=== PATIENT | female | born 1930 | race Caucasian/White ===

== ENCOUNTER → 2016-04-26 | Outpatient (CLI) | payer MEDICARE, BC ==
[~2016-04-26] MED LIST: ALLEGRA180 MG PO; BIOTIN1 M1 PO; FENOFIBRATE54 MG PO; FLOVENT DI50 MCG/Act IH; FLOVENT HFA10.6 GM INH; GABAPENTIN600 MG PO; HEARTBURN RELI150 MG PO; LEVAQUIN 5500 MG/TA1 PO; LOW DOSE ASPIRI81 MG PO; LUTEIN6 M1 PO; MAG-TAB SR84 MG PO; METFORMIN HCL500 MG PO; PHENERGAN W/CO120 M1 PO; SLOW-MAG535 MG PO; VIACTIV CARAMEL PO; ZITHROMAX Z PA250 MG PO; ZYRTEC ALLERGY10 MG PO
== END ==
LOC: MAMMO 11:35
DX: Z12.31 Encounter for screening mammogram for malignant neoplasm of breast (principal)
CPT/HCPCS: G0202

== ENCOUNTER → 2017-05-30 | Outpatient (CLI) | payer MEDICARE, BC ==
[2016-03-08 14:22] VITALS: BP 160/95
== END ==
LOC: MAMMO 15:15 → RAD 15:15 → MAMMO 15:16
DX: Z12.31 Encounter for screening mammogram for malignant neoplasm of breast (principal)

== ENCOUNTER 2017-06-22 14:30 | Outpatient (RCR) | payer MEDICARE, BC ==
[2016-03-08 14:22] VITALS: BP 160/95
== END 2017-06-22 15:00 | disposition home or self-care (01) ==
LOC: PT 14:30
DX: R26.9 Unspecified abnormalities of gait and mobility (principal); Z91.81 History of falling
CPT/HCPCS: G8978-GP; G8979-GP

== ENCOUNTER 2017-08-18 21:26 | Emergency (ER) | payer MEDICARE, BC ==
[~2017-08-18] VITALS: Ht 154.9 cm; Wt 52.3 kg
[2017-08-18] MEDS ORDERED: FOSAMAX 70MG TA70 MG PO (22:29)
[2017-08-19] MEDS ORDERED: LORAZEPAM0.5 M1 PO (00:14)
[2017-08-19 00:35] VITALS: BP 160/84
== END 2017-08-19 00:35 | disposition home or self-care (01) ==
LOC: ED 21:26
DX: E11.621 Type 2 diabetes mellitus with foot ulcer (principal); L97.429 Non-pressure chronic ulcer of left heel and midfoot with unspecified severity; L97.519 Non-pressure chronic ulcer of other part of right foot with unspecified severity; F41.9 Anxiety disorder, unspecified; E11.42 Type 2 diabetes mellitus with diabetic polyneuropathy; Z79.82 Long term (current) use of aspirin; Z79.84 Long term (current) use of oral hypoglycemic drugs

== ENCOUNTER → 2018-10-17 | Outpatient (CLI) | payer MEDICARE, BC ==
[~2018-10-17] MED LIST changes: +FOSAMAX 70MG TA70 MG PO; +LORAZEPAM0.5 M1 PO
== END ==
LOC: VAS 13:42
DX: J98.4 Other disorders of lung (principal)